=== PATIENT | female | born 1980 ===

== ENCOUNTER 2018-03-12 18:18 | Emergency (ER) | payer BC ==
[2018-03-12 18:35] VITALS: BP 130/93
--- NOTE | 2018-03-12 18:57 | UC ---
Respiratory Complaint HPI - HPI Summary HPI Summary: Patient presents to urgent care reporting 3-4 weeks of a persistent cough. Patient states it's worse when she tries to talk a lot or at nighttime. Patient states she had a head cold and her other symptoms seemed to improve except for this. Patient tried Robitussin with little relief. Patient denies fevers or chills. Patient states she does occasionally have some wheezing with coughing. No nausea vomiting. No abdominal pain. No fevers, chills, rash. Patient does not have a history of lung disease or asthma. Patient is not exposed to chemicals at work or cigarette smoker work or home. Pt's medications reviewed this visit - History of Current Complaint Chief Complaint: UCRespiratory Stated Complaint: COUGH Time Seen by Provider: 03/12/18 18:38 Hx Obtained From: Patient ?: No Onset/Duration: Gradual Onset, Lasting Weeks Severity Initially: Mild Severity Currently: None Pain Intensity: 0 Pain Scale Used: 0-10 Numeric Character: Cough: Nonproductive - Allergies/Home Medications Allergies/Adverse Reactions: Allergies Allergy/AdvReac Type Severity Reaction Status Date / Time No Known Allergies Allergy Verified 03/12/18 18:37 Home Medications: Home Medications Levothyroxine TAB* [Synthroid TAB*] 75 mcg PO 0800 03/12/18 [History Confirmed 03/12/18] PMH/Surg Hx/FS Hx/Imm Hx Previously Healthy: Yes - Surgical History Surgical History: Yes Surgery Procedure, Year, and Place: polyp removal - Family History Known Family History: Positive: Other - non contributory - Social History Occupation: Employed Full-time Lives: Dormitory/Roommates Alcohol Use: None Substance Use Type: None Smoking Status (MU): Never Smoked Tobacco Review of Systems Constitutional: Negative Skin: Negative Respiratory: Cough All Other Systems Reviewed And Are Negative: Yes Physical Exam - Summary Physical Exam Summary: Vital Signs Reviewed: Yes A+Ox3, no distress, speaking full, easy sentences Eyes: Conjunctiva Clear, KOKI. EOM intact and full ENT: Hearing grossly normal TM x 2 clear, mmoist, uvula midline, no exudate, no erythema Neck: Positive: Supple Respiratory: Positive: No respiratory distress, No accessory muscle use Pt developed coarse cough with scattered wheeze with deep inspiratins no rhonci + BS throughout Cardiovascular: RRR nl s1, s2 no m/r CBT <2 sec abd soft + BS nt/nd no guarding, no distension Musculoskeletal Exam: NGUYEN x 4 without difficulty Strength Intact, ROM Intact Neurological: Positive: Alert, + sensation throughout Psychological: Positive: Normal Response To Family Skin: Positive: no rash, no ecchymosis Triage Information Reviewed: Yes Vital Signs: Initial Vital Signs Temp 98.4 F 03/12/18 18:31 Pulse 86 03/12/18 18:31 Resp 18 03/12/18 18:31 BP 130/93 03/12/18 18:31 Pulse Ox 100 03/12/18 18:31 Diagnostic Evaluation - Laboratory O2 Sat by Pulse Oximetry: 100 Re-Evaluation - Re-Evaluation First Eval Change: Improved - Pt markedly improved following neb no cough with deep inspratin wheeze resolved pred, mdi with spacer secretion precaution f/u with pcp Respiratory Course/Dx - Course Course Of Treatment: Patient presents with persistent cough. Patient states she 's had for about 1 month it's worse with talking and deep breaths. Patient's Robitussin without relief. Patient had a preceding URI though symptoms have all resolved except for the cough. We'll give patient a nebulizer reassess. Anticipate will likely short course of prednisone as well as MDI. Plus/minus antibiotics. Further discussion, the patient inquired whether a new any mental health counselor's that were of descent. Patient states she intermittently feels depressed and tried several counselors they have been able to connect. Patient states she is closely followed by her primary care doctor who is prescribed antidepressants. Patient states she is not currently having any suicidal or homicidal thoughts. Patient states she just was inquiring since she was in the house that maybe we would have a resource. Discussed with patient had very limited resources however will referred to [facility]. Pt strongly advised to call 911 or go to ED with any thoughts of self harm, helpless - pt states understanding and agreement with plan - Differential Dx/Diagnosis Provider Diagnoses: bronchitis. cough Discharge - Sign-Out/Discharge Documenting (check all that apply): Patient Departure All imaging exams completed and their final reports reviewed: No Studies - Discharge Plan Condition: Stable Disposition: HOME Prescriptions: Albuterol HFA INHALER* [Ventolin HFA Inhaler*] 2 puff INH Q4H PRN #1 mdi PRN Reason: wheeze Inhaler, Assist Devices [Aerochamber Mv] 1 each PO Q4HR #1 spacer predniSONE [Prednisone 20 MG TAB] 40 mg PO DAILY #10 tablet Patient Education Materials: Acute Cough (ED) Referrals: Goran Gutierrez DO [Primary Care Provider] - Sky Cuello MD [Medical Doctor] - Additional Instructions: - stay well hydrated. Drink plenty of non-alcoholic, non-caffinated beverages - Use you inhaler 2 puffs every 4 hours for 2 days, then every 4 hour as needed - Take prednisone as prescribed until gone - These infections are spread by secretions - do NOT share eating or drinking utensils - clean items you share with other people such as cell phones, computer mouse, TV remote, computer tablets,etc. Once you start to feel better, change your toothbrush and your pillowcase. -- humidify the air in the room where you sleep - boil water, run a hot steam shower, vaporizer, cups of water by heat register - Contact your doctor to schedule a follow-up appointment - Billing Disposition and Condition Condition: STABLE Disposition: Home
[2018-03-12] MEDS ORDERED: Albuterol/Ipratropium NEB.SOL* Albuterol 2.5 MG/Ipratropium 0.5 MG 3 ML INH ONE (19:04)
== END 2018-03-12 19:47 | disposition home or self-care (01) ==
LOC: UCEAST 18:18
DX: J40 Bronchitis, not specified as acute or chronic (principal); R05 Cough
CPT/HCPCS: 99202; A9270-GY; G0463

== ENCOUNTER 2018-05-05 12:03 | Emergency (ER) | payer BC ==
[2018-05-05] MEDS ORDERED: Lidocaine 2% JELLY* 10 ML JELLY TOPICAL ONE (12:31)
[2018-05-05] MEDS ORDERED: Tranexamic Acid 1,000 MG/10 ML SDV IV ONE (12:31)
[2018-05-05] MEDS ORDERED: Morphine VIAL* 4 MG/ML VIAL (1 ml vial) IV ONE (12:33)
[2018-05-05] MEDS ORDERED: Ondansetron INJ* 2 MG/ML VIAL IV ONE (12:33)
[2018-05-05] MEDS ORDERED: NS 0.9% 1000 ML* 1,000 ML IV ONE (12:33)
--- NOTE | 2018-05-05 12:55 | ED ---
Throat Pain/Nasal Congestion - HPI Summary HPI Summary: Patient presents with left-sided epistaxis since waking this morning. She reports she woke with wetness coming from her nose and thought she had mucous discharge. When she went to the bathroom to look she noticed she was bleeding. This started at 9 AM and has been persistent since. She has blood coming from her nose and into the back of her throat. She denies trauma including but not limited to face or head injury as well as sneezing, blowing, picking her nose. She keeps her home temperature below 68 Fahrenheit and does not feel does excessively dry however she does live in an apartment with fixed heating. No previous history of epistaxis. Denies headache, visual change, nasal pain, throat pain, ear pain, difficulty breathing or swallowing other than from blood going down back of nasopharynx. She has not tried clamping her nose rather has allowed bleeding to continue into a towel where she's been catching blood. No known history of bleeding disorders however she reports she does have heavy periods - worse since thyroid d/o dx'd. No recent bleeding from gums, hematuria , hematochezia, easy bruising, fatigue or headaches. She is not on any medications nor has she tried anything new recently. She takes ibuprofen as needed for aches and pains but denies excessive use especially as of late. No other NSAID use. No heavy alcohol use. - History of Current Complaint Chief Complaint: EDEpistaxis Time Seen by Provider: 05/05/18 12:14 Hx Obtained From: Patient, Family/Immunologist - Male friend - Allergies/Home Medications Allergies/Adverse Reactions: Allergies Allergy/AdvReac Type Severity Reaction Status Date / Time No Known Allergies Allergy Verified 05/05/18 12:08 PMH/Surg Hx/FS Hx/Imm Hx Previously Healthy: Yes Endocrine/Hematology History: Reports: Hx Thyroid Disease - well controlled on meds Denies: Hx Anticoagulant Therapy, Hx Blood Disorders, Hx Blood Transfusions, Hx Anemia, Hx Unexplained Bleeding, Hx Coagulopothy, Autoimmune Disease Cardiovascular History: Denies: Hx Aneurysm - Surgical History Surgery Procedure, Year, and Place: polyp removal Infectious Disease History: No Infectious Disease History: Denies: Traveled Outside the [place] in Last 30 Days - Family History Known Family History: Negative: Blood Disorder - Social History Occupation: Employed Full-time - [employer] Alcohol Use: None Hx Substance Use: No Substance Use Type: Reports: None Hx Tobacco Use: No Smoking Status (MU): Never Smoked Tobacco Review of Systems Constitutional: Negative Negative: Fever, Chills, Fatigue Eyes: Negative Positive: Epistaxis Cardiovascular: Negative Respiratory: Negative Gastrointestinal: Negative Positive: no symptoms reported Musculoskeletal: Negative Skin: Negative Neurological: Negative Psychological: Normal All Other Systems Reviewed And Are Negative: Yes Physical Exam Triage Information Reviewed: Yes Vital Signs On Initial Exam: Initial Vitals Temp Pulse Resp BP Pulse Ox 97.4 F 103 16 172/112 98 05/05/18 12:05 05/05/18 12:05 05/05/18 12:05 05/05/18 12:05 05/05/18 12:05 Vital Signs Reviewed: Yes Appearance: Positive: Well-Appearing, Well-Nourished, Pain Distress - pt is holding nose, intermittently coughing and gagging Skin: Positive: Warm, Skin Color Reflects Adequate Perfusion, Dry - no signs of bruising or bleeding other than from nose Head/Face: Positive: Normal Head/Face Inspection Eyes: Positive: Normal, EOMI, Conjunctiva Clear ENT: Positive: Hearing grossly normal, Nasal congestion, Nasal drainage - bleeding from Lt nare primarily and into mouth - spitting out clots of blood, Other - Lt TM pain s/p placemetn of afrin soaked surgicel - mild hemotympanum at inferior border. Negative: Trismus, Muffled voice, Hoarse voice Dental: Negative: Dental Fracture @ Respiratory/Lung Sounds: Positive: Breath Sounds Present. Negative: Stridor Cardiovascular: Positive: Tachycardia Musculoskeletal: Positive: Normal, Strength/ROM Intact Neurological: Positive: Normal, Sensory/Motor Intact, Alert, Oriented to Person Place, Time, CN Intact II-III Psychiatric: Positive: Anxious Procedures - Procedure Summary Procedure Summary: Initial epistaxis control attempted with application of afrin soaked surgicel with tongue depression splint on nares - this slowed bleeding somewhat and pt reports developing ear pain Rt first then Lt - TM's w/ mild hemotympanum - no hyperemia or otorrhea - pain resolved after time 2nd attempt at epistaxis control with tranexamic acid soaked 7.5cm rhinorocket for suspect posterior nasal bleed - preteated nasal passage with lidocaine jelly - inserted and inflated rhinorocket - pt tolerated well considering Recheck of bleeding reveals almost complete cessation - still has mild dripping from Rt nare occasionally but pharyngeal bleeding has resolved as has Lt nare bleeding - recheck of Rt nare reveals no active bleeding but pt has inflammed turbinates - no lesions, no capillaries observed Diagnostics - Vital Signs Vital Signs Temp Pulse Resp BP Pulse Ox 05/05/18 12:46 16 05/05/18 12:05 97.4 F 103 16 172/112 98 - Laboratory Result Diagrams: 05/05/18 12:59 05/05/18 12:59 Lab Statement: Any lab studies that have been ordered have been reviewed, and results considered in the medical decision making process. Re-Evaluation - Re-Evaluation First Eval Change: Improved - epistaxis is slowing down somewhat w/ placement of surgicel and afrin Second Eval Change: Improved - epistaxis resolved w/ 7.5cm rhinorocket EENT Course/Dx - Course Course Of Treatment: Pt presents w/ abrupt onset epistaxis this morning w/o h/o trauma, excessive dryness, etc. Bleeding controlled w/ rhinorocket for suspected posterior bleed - labs assessed as pt is young with copious bleeding upon arrival - reports h/o heavy mentrual bleeding since thyroid disease dx - believes this is well controlled - labs added at end of visit and pt to f/u w/ PCP as well as checker and packer - diff dx: [place], etc. BP was elevated upon arrival - initially thought to be from anxiety as pt was anxious. Increased after placement of afrin but reduced to 140's/90's prior to d/c when bleeding stopped and pt appeared more calm and alert s/p morphine. Denies HAM, visual change, neck stiffness, chest pain, SOB, jaw pain or arm tingling throughout course of stay and was asked multiple times throughout her visit. She will keep rhinorocket in place otherwise and f/u w/ ENT for removal - will call tomorrow. Augmentin started for prophylaxis of TSS. Reviewed danger s/sx of when to return to ED. Pt and male friend agree w/ plan. UPDATE: TSH, FT4 WNL. Reviewed case w/ Dr. Velásquez - Diagnoses Provider Diagnoses: Acute posterior epistaxis Discharge - Sign-Out/Discharge Documenting (check all that apply): Patient Departure - Discharge Plan Condition: Stable Disposition: HOME Prescriptions: Amoxicillin/Clavulanate TAB* [Augmentin TAB 875*] 875 mg PO BID #20 tab Patient Education Materials: Nosebleed (ED) Forms: *Work Release Referrals: Flo Seaman MD [Medical Doctor] - Rickie Garcia MD [Medical Doctor] - Additional Instructions: Keep Rhinorocket in place until seen by ENT - call tomorrow to schedule an appointment. (Dr. Seaman) You have been prescribed an antibiotic to prevent infection - take as directed You may apply ice to your face and take acetaminophen as needed for pain - DO NOT TAKE IBUPROFEN, ASPIRIN, ALEVE, ETC TO PREVENT RECURRENCE OF BLEEDING You have also reported a history of heavy menstrual cycles - it is advised that you follow-up with a checker and packer to see if you have a bleeding disorder contributing to your heavy, spontaneous nose bleed today. (Dr. Garcia) *If you develop headache, eye pain, change in vision, return of bleeding, return to the ED - Billing Disposition and Condition Condition: STABLE Disposition: Home
[2018-05-05] MEDS ORDERED: Lidocaine 2% JELLY* 6 ML JELLY TOPICAL ONE (13:05)
[2018-05-05 13:07] LABS: ABS Basophils 0.1 10^3/ul (0-0.2); ABS Eosinophils 0.7 10^3/ul (0-0.6); ABS Lymphocytes 4.2 10^3/ul (1.0-4.8); ABS Monocytes 0.6 10^3/ul (0-0.8); ABS Neutrophils 7.8 10^3/ul (1.5-7.7); ABS Nucleated RBC 0 10^3/ul; Eosinophil % 5.3 %; Hematocrit 40 % (35-47); Hemoglobin 13.3 g/dl (12.0-16.0); Lymphocyte % 31.3 %; Mean Corpuscular HGB Conc 33 g/dl (31-36); Mean Corpuscular Hemoglobin 27 pg (27-31); Mean Corpuscular Volume 82 fL (80-97); Nucleated Red Blood Cells % 0.1; Platelet Count 326 10^3/ul (150-450); Red Blood Count 4.93 10^6/ul (4.00-5.40); Red Cell Distribution Width 14 % (10.5-15); White Blood Count 13.3 10^3/ul (3.5-10.8)
[2018-05-05 13:20] LABS: Activated Partial Thrombo Time 29.8 seconds (26.0-36.3); INR 0.91 (0.77-1.02)
[2018-05-05 13:26] LABS: Anion Gap 8 mmol/L (2-11); Blood Urea Nitrogen 15 mg/dL (6-24); CO2 Carbon Dioxide 19 mmol/L (22-32); Chloride 108 mmol/L (101-111); Glucose 115 mg/dL (70-100); Potassium 4.1 mmol/L (3.5-5.0); Sodium 135 mmol/L (135-145)
[2018-05-05 13:27] LABS: ALT 29 U/L (7-52); AST 23 U/L (13-39); Albumin 4.5 g/dL (3.2-5.2); Albumin/Globulin Ratio 1.4 (1-3); Alkaline Phosphatase 64 U/L (34-104); BUN/Creatinine Ratio 18.8 (8-20); Calcium 9.2 mg/dL (8.6-10.3); EGFR Non-African American 80.3 (>60); Globulin 3.3 g/dL (2-4); Total Protein 7.8 g/dL (6.4-8.9)
[2018-05-05 13:33] LABS: HCG Pregnancy < 0.60 mIU/mL
[2018-05-05 15:11] VITALS: BP 142/96
[2018-05-05 15:17] LABS: TSH (Thyroid Stimulating Horm) 3.57 mcIU/mL (0.34-5.60)
[2018-05-05 15:20] LABS: Free T4 0.91 ng/dL (0.61-1.12)
== END 2018-05-05 15:14 | disposition home or self-care (01) ==
LOC: ED 12:03
DX: R04.0 Epistaxis (principal); E07.9 Disorder of thyroid, unspecified
CPT/HCPCS: 30905; 36415; 80053; 84439; 84443; 84702; 85025; 85610; 85730; 86850; 86900; 86901; 96361; 96374; 96375; 99282; A9270-GY; J2270; J2405

== ENCOUNTER 2018-12-30 21:08 | Emergency (ER) | payer BC ==
[2018-12-30 21:37] VITALS: BP 142/93
--- NOTE | 2018-12-30 21:44 | UC ---
Respiratory Complaint HPI - HPI Summary HPI Summary: 38 yo female with cough and wheeze x 2 weeks post nasal drip and sore throat no HAM has felt feverish low energy no CP or SOB - History of Current Complaint Chief Complaint: UCRespiratory Stated Complaint: COUGH Time Seen by Provider: 12/30/18 21:19 Hx Obtained From: Patient Hx Last Menstrual Period: 12/13/18 Onset/Duration: Gradual Onset, Lasting Weeks Severity Initially: Mild Severity Currently: Moderate Pain Intensity: 5 Pain Scale Used: 0-10 Numeric Character: Cough: Productive - at times Aggravating Factors: Nothing Alleviating Factors: Nothing Associated Signs And Symptoms: Positive: Wheezing Related History: Similar Episode/Dx as: - bronchitis - Allergies/Home Medications Allergies/Adverse Reactions: Allergies Allergy/AdvReac Type Severity Reaction Status Date / Time fish derived Allergy Eyes Verified 12/30/18 21:25 Itchy/Swollen/Red/Watery pollen extracts Allergy Hives/Diff. Verified 12/30/18 21:25 Breathing/I tching Home Medications: Home Medications Dextromethorphan Polistirex [Delsym] 1 dose PO ONCE PRN 12/30/18 [History Confirmed 12/30/18] Lisinopril 1 tab PO DAILY 12/30/18 [History Confirmed 12/30/18] PMH/Surg Hx/FS Hx/Imm Hx Previously Healthy: Yes Cardiovascular History: Hypertension Other History Of: Negative For: Anticoagulant Therapy - Surgical History Surgical History: Yes Surgery Procedure, Year, and Place: polyp removal - Family History Known Family History: Positive: Hypertension Negative: Blood Disorder - Social History Alcohol Use: None Substance Use Type: None Smoking Status (MU): Never Smoked Tobacco Review of Systems All Other Systems Reviewed And Are Negative: Yes Constitutional: Positive: Fever - ?, Fatigue Skin: Positive: Negative Eyes: Positive: Negative ENT: Positive: Sore Throat Respiratory: Positive: Cough Cardiovascular: Positive: Negative Gastrointestinal: Positive: Negative Genitourinary: Positive: Negative Motor: Positive: Negative Neurovascular: Positive: Negative Musculoskeletal: Positive: Negative Neurological: Positive: Negative Psychological: Positive: Negative Physical Exam Triage Information Reviewed: Yes Appearance: Well-Appearing, No Pain Distress, Well-Nourished Vital Signs: Initial Vital Signs Temp 99.9 F 12/30/18 21:23 Pulse 84 12/30/18 21:23 Resp 18 12/30/18 21:23 BP 142/93 12/30/18 21:23 Pulse Ox 97 12/30/18 21:23 Vital Signs Reviewed: Yes Eyes: Positive: Conjunctiva Clear ENT: Positive: Hearing grossly normal, Nasal congestion, TMs normal, Uvula midline. Negative: Nasal drainage, Tonsillar swelling, Tonsillar exudate, Trismus, Muffled voice, Hoarse voice, Dental tenderness, Sinus tenderness Neck: Positive: Supple, Nontender, Enlarged Nodes @ - slightly tender mild ant cer lymphadenopathy Respiratory: Positive: Lungs clear, Normal breath sounds, No respiratory distress, No accessory muscle use Cardiovascular: Positive: RRR, No Murmur Abdomen Description: Positive: Nontender, No Organomegaly. Negative: CVA Tenderness (R), CVA Tenderness (L) Bowel Sounds: Positive: Present Musculoskeletal: Positive: ROM Intact Neurological: Positive: Alert Psychological Exam: Normal Skin Exam: Normal Respiratory Course/Dx - Differential Dx/Diagnosis Provider Diagnosis: Acute bronchitis with bronchospasm Discharge - Sign-Out/Discharge Documenting (check all that apply): Patient Departure All imaging exams completed and their final reports reviewed: No Studies - Discharge Plan Condition: Stable Disposition: HOME Prescriptions: Amoxicillin PO (*) [Amoxicillin 875 MG (*)] 875 mg PO BID #14 tab predniSONE [Deltasone 20 MG TAB] 40 mg PO DAILY #10 tab Patient Education Materials: Acute Bronchitis (ED), How to Use a Metered-Dose Inhaler and a Spacer (ED) Referrals: Kelli Shaikh MD [Primary Care Provider] - 1 Week Additional Instructions: use inhaler as directed - Billing Disposition and Condition Condition: STABLE Disposition: Home
[2018-12-30] MEDS ORDERED: predniSONE TAB* 20 MG PO ONE (21:52)
[2018-12-30] MEDS ORDERED: Albuterol HFA INHALER* 8 gm MDI INH ONE (21:52)
[2018-12-30] MEDS ORDERED: Amoxicillin PO (*) 500 MG CAP PO ONE (21:53)
== END 2018-12-30 22:16 | disposition home or self-care (01) ==
LOC: UCEAST 21:08
DX: J20.9 Acute bronchitis, unspecified (principal); I10 Essential (primary) hypertension
CPT/HCPCS: 99213; A9270-GY; G0463; J7512